=== PATIENT | male | born 1955 | race Caucasian/White ===

== ENCOUNTER 2019-09-15 09:02 | Emergency (ER) | payer MEDICARE, BC ==
[2019-09-15] MEDS ORDERED: Tetan/Diph/Pertus SYR(Tdap)* 0.5 ML SYR(BOOSTRIX) use SYR contains LATEX IM ONE (10:50)
--- NOTE | 2019-09-15 10:52 | ED ---
Laceration/Wound HPI - HPI Summary HPI Summary: 64-year-old male with no significant past medical history presents to emergency department today complaining of sustaining a 4 cm laceration to the top of the scalp after dropping an approximately 10 pound block of wood from 5 feet high onto his head. He states he did not lose consciousness and does not have amnesia, numbness and tingling, changes in vision. He endorses a headache which he states is not the worse headache of his life. He denies anticoagulant use. He denies previous intracranial hemorrhage or history of polycystic kidney disease. Family history is noncontributory. He denies fever, chest pain , abdominal pain, shortness of breath. Urination, rash. - History of Current Complaint Stated Complaint: HIT IN HEAD PER PT Time Seen by Provider: 09/15/19 10:42 Hx Obtained From: Patient Mechanism of Injury: Sharp/Blunt Trauma Onset/Duration: Sudden Onset Aggravating: Nothing Alleviating: Nothing Timing: Constant Onset Severity: Moderate Current Severity: Moderate Pain Intensity: 6 Pain Scale Used: 0-10 Numeric Associated Signs & Symptoms: Pain - Allergy/Home Medications Allergies/Adverse Reactions: Allergies Allergy/AdvReac Type Severity Reaction Status Date / Time No Known Allergies Allergy Verified 09/15/19 09:13 Home Medications: Home Medications NK [No Home Medications Reported] 09/15/19 [History Confirmed 09/15/19] PMH/Surg Hx/FS Hx/Imm Hx Infectious Disease History: No Infectious Disease History: Denies: Traveled Outside the [place] in Last 30 Days - Social History Alcohol Use: Occasionally Substance Use Type: Reports: None Smoking Status (MU): Never Smoked Tobacco Review of Systems Constitutional: Negative Eyes: Negative ENT: Negative Cardiovascular: Negative Respiratory: Negative Gastrointestinal: Negative Genitourinary: Negative Musculoskeletal: Negative Skin: Negative Positive: Headache. Negative: Weakness, Paresthesia, Syncope Psychological: Normal All Other Systems Reviewed And Are Negative: Yes Physical Exam - Summary Physical Exam Summary: 4 cm linear laceration noted to the central top scalp. No evidence of foreign body. Wound appears clean. Hemostasis achieved. Triage Information Reviewed: Yes Vital Signs On Initial Exam: Initial Vitals Temp Pulse Resp BP Pulse Ox 97.7 F 60 14 140/82 98 09/15/19 09:10 09/15/19 09:10 09/15/19 09:10 09/15/19 09:10 09/15/19 09:10 Vital Signs Reviewed: Yes Appearance: Positive: Well-Appearing, No Pain Distress, Well-Nourished Skin: Positive: Warm, Skin Color Reflects Adequate Perfusion Eyes: Positive: EOMI, RODRÍGUEZ ENT: Positive: Hearing grossly normal Respiratory/Lung Sounds: Positive: Clear to Auscultation, Breath Sounds Present Cardiovascular: Positive: RRR, S1, S2 Abdomen Description: Negative: Distended, Guarding Bowel Sounds: Positive: Present Musculoskeletal: Positive: Strength/ROM Intact Neurological: Positive: Sensory/Motor Intact, Alert, Oriented to Person Place, Time, Normal Gait, Facial Symmetry, Speech Normal Psychiatric: Positive: Normal AVPU Assessment: Alert Procedures - Sedation Patient Received Moderate/Deep Sedation with Procedure: No - Laceration/Wound Repair 1 Location: head Description: Linear Length, Depth and Shape: 4cm length, 3 mm deep Betadine Prep?: No Irrigated w/ Saline (ccs): 200 Laceration/Wound Explored: clean, no foreign body removed Closure: Single Layer Number of Sutures: 3 - Toña Layer Closure?: No Sterile Dressing Applied?: No Diagnostics - Vital Signs Vital Signs Temp Pulse Resp BP Pulse Ox 09/15/19 09:10 97.7 F 60 14 140/82 98 - Laboratory Lab Statement: Any lab studies that have been ordered have been reviewed, and results considered in the medical decision making process. Laceration Repair Course/Dx - Course Course Of Treatment: Patient was evaluated in the emergency department today for laceration of the scalp. He was seen and examined vitals are stable and is afebrile. CT scan of the head was done which showed no evidence of intracranial bleed or pathology. Laceration was irrigated using 200 cc of saline. Laceration was repaired using 3 toña. Patient tetanus vaccination updated. Patient was told to follow-up with his primary care provider or the emergency department for staple removal in 8 days. He is given instructions on wound care. - Differential Dx Differental Diagnoses: Hematoma, Laceration, Puncture Wound - Clinical Impression Provider Diagnoses: Laceration of scalp Discharge ED - Sign-Out/Discharge Documenting (check all that apply): Patient Departure - Discharge Plan Condition: Stable Disposition: HOME Patient Education Materials: Laceration (ED), Staple Care (ED) Referrals: Mariano YEN,Huyen Roman [Primary Care Provider] - 7 Days Additional Instructions: You were seen in the emergency department today due to a laceration on your head. Imaging was done which showed no evidence of intracranial pathology such as a bleed. Please be sure to gently rinse the laceration with warm soap and water daily and pat it dry. Please follow-up with your primary care physician or this emergency Department in 8 days to have the toña removed. Please return to the emergency department immediately if you develop any new or worsening symptoms. You may take Tylenol for pain as needed. - Billing Disposition and Condition Condition: STABLE Disposition: Home
[2019-09-15] MEDS ORDERED: Acetaminophen TAB* 325 MG PO ONE (11:30)
[2019-09-15 12:08] VITALS: BP 137/73
== END 2019-09-15 12:08 | disposition home or self-care (01) ==
LOC: ED 09:02
DX: S01.01XA Laceration without foreign body of scalp, initial encounter (principal); Z23 Encounter for immunization; W22.8XXA Striking against or struck by other objects, initial encounter; Y92.9 Unspecified place or not applicable
CPT/HCPCS: 12002; 70450; 90471; 90715; 99282; A9270-GY